=== PATIENT | female | born 1965 | race Caucasian/White ===

== ENCOUNTER 2016-08-28 16:05 | Emergency (ER) | payer SELFPAY ==
[~2016-08-28] VITALS: Ht 154.9 cm; Wt 85.5 kg
[~2016-08-28 16:05] MED LIST: AUGM875 PO; NAPR550 PO; Z.0.NO CURRENT MEDS
[2016-08-28 16:28] VITALS: BP 148/79; PULSE 93; RESP 17; TEMP 98.6; O2SAT 96
[2016-08-28 16:41] LABS: BLOOD, URINE NEG (NEG); KETONE, URINE NEG (NEG); NITRITE,URINE NEG (NEG); PH, URINE 5.5 (5.0-8.5)
[2016-08-28] MEDS ORDERED: KETOROLAC TROMETHAMINE 30 MG/ML (IVP) VIAL IV PUSH ONE (17:00)
[2016-08-28] MEDS ORDERED: SODIUM CHLOR 0.9% 1000 ML INJ 1,000 ML IV ONE (17:00)
[2016-08-28 17:03] LABS: GLUCOSE,URINE 1000 OR GREATER mg/dL (NEG)
[2016-08-28 17:05] LABS: URINE COLOR STRAW (YELLW/STRAW)
[2016-08-28 17:06] LABS: COMMENT (UR) CULT NOT INDICATED; CULTURE IF INDICATED CULT NOT INDICATED; RBC, URINE 0-3 /hpf (0-3); SQUAMOUS EPITHELIAL CELL URINE 0-5 /hpf (0-5); WBC, URINE 0-2 /hpf (0-5)
--- NOTE | 2016-08-28 17:10 | PD ---
HPI Chief Complaint: Pain: Acute or Chronic Time Seen by Provider: 16:39 Travel History International Travel<30 days: No Contact w/Intl Traveler<30days: No Traveled to known affect area: No History of Present Illness HPI 51yo F with PMH of pyelonephritis and diabetes ( noncompliant with medication for 1 year due to lack of insurance) presents to the ED with c/o right lower back pain since yesterday. States it is sharp, crampy and had radiate to right abdomen yesterday but is only localized in the back today. States it feels like when she had her kidney infection 20years ago. +Chills. +Nausea. Denies any fever, chest pain, sob, current abdominal pain, urinary complaints. Denies any falls, incontinence, focal weakness or numbness, IVDA. PFSH Past Medical History Diabetes: Yes (TAKES NO MEDS) Patient Takes Glucophage: No Diminished Hearing: No Immunizations Current: No ?: Not Past Surgical History Section: Yes Social History Alcohol Use: No Tobacco Use: No Substance Use: No Allergies-Medications (Allergen,Severity, Reaction): Coded Allergies: No Known Allergies (Verified , 08/28/16) Reported Meds & Prescriptions Reported Meds & Active Scripts Active Ibuprofen 400 Mg Tab 400 Mg PO Q8H PRN Review of Systems Except as stated in HPI: all other systems reviewed are Neg Physical Exam Narrative GENERAL: 51yo F not in distress. SKIN: Focused skin assessment warm/dry. HEAD: Atraumatic. Normocephalic. EYES: Pupils equal and round. No scleral icterus. No injection or drainage. ENT: No nasal bleeding or discharge. Mucous membranes pink and moist. NECK: Trachea midline. No JVD. CARDIOVASCULAR: Regular rate and rhythm. No murmur appreciated. RESPIRATORY: No accessory muscle use. Clear to auscultation. Breath sounds equal bilaterally. GASTROINTESTINAL: Abdomen soft, non-tender, nondistended. No rebound tenderness or guarding. BACK: No midline ttp. No CVA tenderness bilaterally. No paraspinal ttp. MUSCULOSKELETAL: No obvious deformities. No clubbing. No cyanosis. No edema. NEUROLOGICAL: Awake and alert. No obvious cranial nerve deficits. Motor grossly within normal limits. Normal speech. PSYCHIATRIC: Appropriate mood and affect; insight and judgment normal. Data Data Last Documented VS Vital Signs Date Time Temp Pulse Resp B/P Pulse Ox O2 Delivery O2 Flow Rate FiO2 08/28/16 19:00 75 18 150/75 97 Room Air 08/28/16 16:28 98.6 Orders Urinalysis - C+S If Indicated (08/28/16 16:33) Complete Blood Count With Diff (08/28/16 16:51) Comprehensive Metabolic Panel (08/28/16 16:51) Ketorolac Inj (Toradol Inj) (08/28/16 17:00) Sodium Chlor 0.9% 1000 Ml Inj (Ns 1000 M (08/28/16 17:00) Blood Glucose (08/28/16 16:51) Beta Hydroxybutyrate (Acetone) (08/28/16 17:13) Insulin Human Regular Inj (Novolin R Inj (08/28/16 18:15) Mandatory Outpatient Referral (08/28/16 18:49) Labs Laboratory Tests Test 08/28/16 08/28/16 08/28/16 16:36 17:10 17:27 Urine Color STRAW Urine Turbidity CLEAR Urine pH 5.5 Urine Specific [place] 1.000 Urine Protein NEG mg/dL Urine Glucose (UA) 1000 OR GREATER mg/dL Urine Ketones NEG mg/dL Urine Occult Blood NEG Urine Nitrite NEG Urine Bilirubin NEG Urine Leukocyte Esterase SMALL Urine RBC 0-3 /hpf Urine WBC 0-2 /hpf Urine Squamous Epithelial 0-5 /hpf Cells Microscopic Urinalysis Comment CULT NOT INDICATED White Blood Count 8.6 TH/MM3 Red Blood Count 4.59 MIL/MM3 Hemoglobin 12.9 GM/DL Hematocrit 38.7 % Mean Corpuscular Volume 84.1 FL Mean Corpuscular Hemoglobin 28.2 PG Mean Corpuscular Hemoglobin 33.5 % Concent Red Cell Distribution Width 13.1 % Platelet Count 358 TH/MM3 Mean Platelet Volume 8.3 FL Neutrophils (%) (Auto) 49.6 % Lymphocytes (%) (Auto) 31.0 % Monocytes (%) (Auto) 7.2 % Eosinophils (%) (Auto) 11.6 % Basophils (%) (Auto) 0.6 % Neutrophils # (Auto) 4.2 TH/MM3 Lymphocytes # (Auto) 2.7 TH/MM3 Monocytes # (Auto) 0.6 TH/MM3 Eosinophils # (Auto) 1.0 TH/MM3 Basophils # (Auto) 0.1 TH/MM3 CBC Comment DIFF FINAL Differential Comment Sodium Level 137 MEQ/L Potassium Level 3.8 MEQ/L Chloride Level 100 MEQ/L Carbon Dioxide Level 29.6 MEQ/L Anion Gap 7 MEQ/L Blood Urea Nitrogen 18 MG/DL Creatinine 0.62 MG/DL Estimat Glomerular Filtration 101 ML/MIN Rate Random Glucose 309 MG/DL Calcium Level 8.3 MG/DL Total Bilirubin 0.2 MG/DL Aspartate Amino Transf 17 U/L (AST/SGOT) Alanine Aminotransferase 28 U/L (ALT/SGPT) Alkaline Phosphatase 86 U/L Total Protein 8.0 GM/DL Albumin 3.5 GM/DL B-Hydroxybutyrate 0.32 MMOL/L MDM Medical Decision Making Medical Screen Exam Complete: Yes Emergency Medical Condition: Yes Differential Diagnosis Pyelonephritis vs. nephrolithiasis vs. musculoskeletal pain vs. uncontrolled DM Narrative Course 51yo F with right lower back pain since yesterday. Labs reviewed, no leukocytosis. CMP unremarkable except for elevated glucose of 309. No increased anion gap and CO2 normal. B-Hyroxybutyrate normal. UA showed small leukocyte but WBC in urine is 0-2. No nitrite and culture not indicated. Pt given toradol, NS IVF and regular insulin 5 units. Pt reevaluated at bedside and pain has resolved. Impression is more musculoskeletal pain as pt has no red flags for back pain. No trauma, fever, IVDA or neurologic symptoms. Denies any abdominal pain and abdomen is soft, NT/ ND. VS wnl. Will do mandatory referral for patient for her diabetes since she does not have insurance or primary care. Repeat glucose 246. Return precautions given. Diagnosis Primary Impression: Back pain Qualified Code: M54.5 - Acute right-sided low back pain without sciatica Patient Instructions: General Instructions Departure Forms: Tests/Procedures Additional Instructions: Please follow up with primary care physician after family service caseworker calls you. Return to the ED if symptoms worsen. Med/Other Pt SpecificInfo: Prescription(s) given Scripts Ibuprofen 400 Mg [id number] Mg PO Q8H PRN (PAIN SCALE 1 TO 4) #20 TAB Ref 0 Prov:Amanda Lambert 08/28/16 Disposition: 01 DISCHARGE HOME Condition: Stable Amanda Lambert DO Aug 28, 2016 17:10
[2016-08-28 17:16] LABS: AUTOMATED NEUTROPHIL # 4.2 TH/MM3 (1.8-7.7); BASOPHIL # 0.1 TH/MM3 (0-0.2); BASOPHIL % 0.6 % (0.0-2.0); EOSINOPHIL % 11.6 % (0.0-4.0); HEMATOCRIT 38.7 % (35.0-46.0); HEMO FLAGS DIFF FINAL; LYMPHOCYTE # 2.7 TH/MM3 (1.0-4.8); MEAN CELL VOLUME 84.1 FL (80.0-100.0); MEAN CORPUSCULAR HEMOGLOBIN 28.2 PG (27.0-34.0); MEAN CORPUSCULAR HGB CONC 33.5 % (32.0-36.0); MONO % 7.2 % (0.0-8.0); NEUT % 49.6 % (16.0-70.0); PLATELET COUNT 358 TH/MM3 (150-450); RED BLOOD COUNT 4.59 MIL/MM3 (4.00-5.30); RED CELL DISTRIBUTION WIDTH 13.1 % (11.6-17.2); WHITE BLOOD COUNT 8.6 TH/MM3 (4.0-11.0)
[2016-08-28 17:25] LABS: CHLORIDE 100 MEQ/L (98-107); POTASSIUM 3.8 MEQ/L (3.5-5.1); SODIUM (NA) 137 MEQ/L (136-145)
[2016-08-28 17:28] LABS: ANION GAP 7 MEQ/L (5-15); BICARBONATE 29.6 MEQ/L (21.0-32.0)
[2016-08-28 17:29] LABS: BLOOD UREA NITROGEN 18 MG/DL (7-18)
[2016-08-28 17:31] LABS: ALT (GPT) 28 U/L (10-53)
[2016-08-28 17:32] LABS: AST (GOT) 17 U/L (15-37); GLOMERULAR FILTRATION RATE 101 ML/MIN (>89)
[2016-08-28 17:33] LABS: TOTAL BILIRUBIN ADULT 0.2 MG/DL (0.2-1.0)
[2016-08-28 17:34] LABS: ALKALINE PHOSPHATASE 86 U/L (45-117)
[2016-08-28 17:39] VITALS: BP 137/81; PULSE 74; RESP 16; O2SAT 98
[2016-08-28] MEDS ORDERED: INSULIN HUMAN REGULAR 1,000 UNITS/10 ML VIAL SQ ONE (18:15)
[2016-08-28] MEDS ORDERED: IBUP400T20 PO (18:43)
[2016-08-28 19:00] VITALS: BP 150/75; PULSE 75; RESP 18; O2SAT 97
== END 2016-08-28 19:40 | disposition home or self-care (01) ==
LOC: PHED 16:05
DX: M54.5 Low back pain (principal); R68.83 Chills (without fever); R11.0 Nausea; E11.65 Type 2 diabetes mellitus with hyperglycemia; Z91.14 Patient's other noncompliance with medication regimen
CPT/HCPCS: 80053; 81001; 82010; 85025; 96361; 96372; 96374; 99283; J1815; J1885; J7030